=== PATIENT | male | born 1965 | race Caucasian/White ===

== ENCOUNTER 2016-06-25 21:59 | Emergency (ER) | payer OTHER ==
[2016-06-25 23:20] VITALS: BP 140/92
== END 2016-06-25 23:20 | disposition home or self-care (01) ==
LOC: ED 21:59
DX: S93.411A Sprain of calcaneofibular ligament of right ankle, initial encounter (principal); Z79.899 Other long term (current) drug therapy; X50.1XXA Overexertion from prolonged static or awkward postures, initial encounter; Y93.89 Activity, other specified; Y92.89 Other specified places as the place of occurrence of the external cause; Y99.8 Other external cause status

== ENCOUNTER 2017-02-18 12:08 | Emergency (ER) | payer OTHER ==
[~2017-02-18] VITALS: Ht 193 cm; Wt 149.7 kg
[2017-02-18 12:16] VITALS: BP 163/84; Ht 193 cm; Wt 149.7 kg
== END 2017-02-18 18:22 | disposition home or self-care (01) ==
LOC: ED 12:08
DX: L03.116 Cellulitis of left lower limb (principal)